=== PATIENT | male | born 1940 | race Caucasian/White ===

== ENCOUNTER 2021-08-23 13:26 | Inpatient (IN) | payer MEDICARE, MEDICAID ==
[~2021-08-23] VITALS: Ht 175.3 cm; Wt 150.0 kg
[~2021-08-23 13:26] MED LIST: ACTOS30 MG PO; AMARYL4 MG PO; ASPIRIN 81M81 MG/TA2 PO; ASPIRIN E.C. 8181 MG PO; BACTRIM DS 8001 TAB PO; CARDURA 2MG2 MG PO; EC-NAPROSYN375 MG PO; FERROUS SU325 MG/TAB PO; FLEXERIL5 MG PO; FLOMAX 0.40.4 MG/CAP PO; FLONASE NASAL S16 GM NS; FOLIC ACID 40400 MCG PO; GLUCOPHAGE500 MG/TAB PO; LAMISIL250 MG PO; LASIX 40MG TABL40 MG PO; LASIX 80MG TABL80 MG PO; LIPITOR 40MG TA40 MG PO; LOPRESSOR 550 MG/TAB PO; MICRONASE2.5 MG PO; NAPROXEN 3375 MG/TAB PO; NITROSTAT0.4 MG/TAB SL; NORCO 325 MG-7.1 TAB PO; PRILOTC; SYNTHROID0.088 MG/T PO; TOPROL XL 50MG50 MG PO; TYLENOL 325MG325 MG PO; VITAMIN C500 MG PO; ZESTRIL 5MG5 MG PO; ZOCOR 10MG10 MG PO
[2021-08-23 13:40] LABS: HEMOGLOBIN 11.9 g/dl (13.5-18.0); MEAN CELL VOLUME 94 fl (80.0-100.0); MEAN CORPUSCULAR HEMOGLOBIN 31 pg (27-31); MEAN CORPUSCULAR HGB CONC 33 g/dl (33.0-37.0); MEAN PLATELET VOLUME 9.7 fl (7.4-10.4); PLATELET COUNT 184 K/mm3 (130-400); RED BLOOD COUNT 3.84 M/mm3 (4.20-5.60)
[2021-08-23 13:52] LABS: BASOPHIL 1 % (0-2); LYMPHOCYTE 6 % (20.0-51.0)
[2021-08-23 13:53] LABS: BAND 15 % (0-10); NEUTROPHILS 73 % (42.0-75.2); PLATELET ESTIMATE NORMAL (NORMAL)
[2021-08-23 13:58] LABS: BILIRUBIN,TOTAL 0.5 mg/dL (0.2-1.2); CALCIUM 8.6 mg/dL (8.4-10.2); CREATININE, serum 2.67 mg/dL (0.72-1.25); POTASSIUM 4.5 mmol/L (3.5-4.5); TOTAL PROTEIN 6.9 gm/dL (6.2-8.1)
[2021-08-23 14:29] LABS: COLLECTION METHOD CATHETER
[2021-08-23 15:01] LABS: MUCOUS Present (NOT PRESENT); PH 5 (5-8); SQUAMOUS EPITHELIAL 0-2 /hpf (0-10); URINE APPEARANCE Cloudy (CLEAR/HAZY); URINE BACTERIA None Seen /hpf (NONE SEEN); URINE BILIRUBIN Negative (NEGATIVE); URINE BLOOD 3+ (NEGATIVE); URINE COLOR Yellow (YELLOW); URINE GLUCOSE 1+ (NEGATIVE); URINE KETONE Trace (NEGATIVE); URINE LEUKOCYTE ESTERASE 3+ (NEGATIVE); URINE NITRATE Negative (NEGATIVE); URINE PROTEIN(semi-quant) 1+ (NEGATIVE); URINE RBC >50 /hpf (0-2); URINE UROBILINOGEN Negative (NEGATIVE)
--- NOTE | 2021-08-23 18:06 | NUR ---
PT ARRIVED TO THE FLOOR AT 1806. THE PATIENT WAS WHEELED IN A WHEELCHAIR, DENIES ANY PAIN, SOB, OR DISCOMFORT. AT THIS TIME, THE PATIENT IS REQUESTING TO REMAIN IN THE WHEELCHAIR TO EAT HIS DINNER. THE PATIENT HAS A TOBAR IN PLACE. PER MAR, THERE IS A FLUID BOLUS, HOWEVER, THAT WAS GIVEN IN THE ED PER REPORT. FLUIDS AT 75ML/HR MAINTAINENCE HAVE NOT BEEN STARTED YET. BARIATRIC BED HAS BEEN DELIVERED THE PATIENT IS MORBIDLY OBESE. PAPER WORK SENT UP WITH THE PATIENT STATES THAT THE PATIENT IS A DNR, AND HAVE ATTEMPTED TO CONTACT PROVIDERS WITH NO ANSWER AT THIS TIME TO GET THE DNR ORDER PLACED. VITAL SIGNS DONE UPON ADMIT TO THE FLOOR, PATIENT IS STABLE AT THIS TIME. WILL REVIEW PATIENT DURING BEDSIDE SHIFT REPORT.
[2021-08-23 18:09] VITALS: BP 94/50; PULSE 111; TEMP 99
[2021-08-23] MEDS ORDERED: NORCO 325 MG-51 TAB PO ×2 (19:38→20:14)
[2021-08-23] MEDS ORDERED: LASIX 20MG TABL20 MG PO (19:40)
[2021-08-23] MEDS ORDERED: GLUCOPHAGE500 MG/TAB PO (19:41)
[2021-08-23] MEDS ORDERED: TYLENOL 325MG325 MG PO (19:42)
[2021-08-23] MEDS ORDERED: AMARYL1 MG PO (19:43)
[2021-08-23] MEDS ORDERED: SYNTHROID0.088 MG/T PO (19:44)
[2021-08-23] MEDS ORDERED: FLOMAX 0.40.4 MG/CAP PO (19:45)
[2021-08-23] MEDS ORDERED: LIPITOR 40MG TA40 MG PO (19:45)
[2021-08-23] MEDS ORDERED: PRINIVIL5 MG PO (19:46)
[2021-08-23] MEDS ORDERED: TOPROL XL 50MG50 MG PO (19:47)
[2021-08-23] MEDS ORDERED: ELIDEL 100G TOP (19:50)
[2021-08-23] MEDS ORDERED: IPRATROPIUM BROM3 M1 IH (19:52)
[2021-08-23] MEDS ORDERED: OMNICEF 300MG300 MG PO (19:53)
[2021-08-23] MEDS ORDERED: BION TEARS EYE1 EAC1 OP (19:56)
[2021-08-23] MEDS ORDERED: ASPIRIN E.C. 8181 MG PO (19:57)
[2021-08-23] MEDS ORDERED: DULCOLAX S10 MG/SUPP RC (19:58)
[2021-08-23] MEDS ORDERED: DULCOLAX TAB5 MG PO (20:00)
[2021-08-23] MEDS ORDERED: B-121000 MCG PO (20:01)
[2021-08-23] MEDS ORDERED: DELSYM30 MG/5 ML PO (20:03)
[2021-08-23] MEDS ORDERED: ZANTAC-360 (FAM10 MG PO (20:05)
[2021-08-23] MEDS ORDERED: GERI-LANTA 355355 ML PO (20:07)
[2021-08-23] MEDS ORDERED: GERI-TUSSI100 MG/5 M PO (20:08)
[2021-08-23] MEDS ORDERED: HYDROCORTISON28.4 GM TP (20:09)
[2021-08-23] MEDS ORDERED: GOOD SENSE400 MG/5 M PO (20:12)
[2021-08-23] MEDS ORDERED: NITROSTAT0.4 MG/TAB SL (20:13)
[2021-08-23] MEDS ORDERED: NYSTATIN POWDER30 GM TOP (20:18)
[2021-08-23 20:21] VITALS: BP 110/55; PULSE 111; TEMP 99.3
[2021-08-23] MEDS ORDERED: OCUSOFT LID SCR50 ML TP (20:23)
[2021-08-23] MEDS ORDERED: MIRALAX PA17 GM/Dose PO (20:24)
[2021-08-23] MEDS ORDERED: PREPH RC (20:26)
[2021-08-23] MEDS ORDERED: SENNA-LAX8.6 MG PO (20:27)
[2021-08-23] MEDS ORDERED: SORE THROAT LOZ1 LO1 PO (20:29)
[2021-08-23] MEDS ORDERED: TUMS500 MG CHEW (20:30)
[2021-08-23] MEDS ORDERED: VITAMIND3 5000 PO (20:31)
[2021-08-23] MEDS ORDERED: ZOFRAN ODT4 MG PO (20:32)
[2021-08-23 23:56] VITALS: BP 132/80; PULSE 133; TEMP 101.6
[2021-08-24] VITALS (7 sets, daily range): BP systolic 118–140; BP diastolic 57–92; PULSE 102–126; TEMP 97.8–99.9
--- NOTE | 2021-08-24 00:07 | NUR ---
PT FEBRILE AND PT REMAINS TACHY HEART RATE IN THE 120'S. TYLENOL ADMINISTERED ORDERED. COOL TOWEL PLACED ON PT. THIS NURSE WILL CONTINUE TO MONITOR.
[2021-08-24 06:45] LABS: HEMOGLOBIN 11.5 g/dl (13.5-18.0); MEAN CELL VOLUME 93 fl (80.0-100.0); MEAN CORPUSCULAR HEMOGLOBIN 31 pg (27-31); MEAN CORPUSCULAR HGB CONC 33 g/dl (33.0-37.0); MEAN PLATELET VOLUME 9.9 fl (7.4-10.4); PLATELET COUNT 166 K/mm3 (130-400); RED BLOOD COUNT 3.75 M/mm3 (4.20-5.60); REDCELL DISTRIBUTION WIDTH-CV 13.9 % (11.5-14.5)
[2021-08-24 06:49] LABS: HEMATOCRIT 34.9 % (42.0-52.0)
[2021-08-24 07:09] LABS: CALCIUM 8.6 mg/dL (8.4-10.2); CREATININE, serum 2.27 mg/dL (0.72-1.25); POTASSIUM 4.3 mmol/L (3.5-4.5)
[2021-08-24 07:29] LABS: BAND 11 % (0-10); LYMPHOCYTE 3 % (20.0-51.0); NEUTROPHILS 82 % (42.0-75.2)
[2021-08-24 07:30] LABS: PLATELET ESTIMATE NORMAL (NORMAL)
--- NOTE | 2021-08-24 07:34 | NUR ---
HOSPITALIST CONTACTED THIS AM TO REVIEW MED REC, NO ANSWER, THIS NURSE RELAYED TO ONCOMING SHIFT. ONCOMING RN FOLLOWING.
--- NOTE | 2021-08-24 10:51 | NUR ---
SW met with patient to complete intake. Patient states that he lives at [facility]. Point of contact is his sister Mariel Zhou [phone]. Patient states that he uses a wheelchair and a walker at times and needs [facility] the [facility]. PCP is Dr. Schafer. Patient states that [facility] the [facility] upon DC. SW will continue to follow. DC plan: back to [facility]
--- NOTE | 2021-08-24 12:47 | NUR ---
[facility] sent to [facility] for [facility]. SW will continue to follow.
--- NOTE | 2021-08-24 19:39 | NUR ---
Pt had an uneventful day. Denies any pain. Restarted medications per Dr's Orders. The patient was able to sit up at bedside by himself, arellano in place draining yellow urine. Report has been given to WILLIAM Wooten
--- NOTE | 2021-08-24 22:17 | NUR ---
PT WAS ALERT AND ORIENTED UPON ENTRY THIS EVENING. CALM AND COOPERATIVE. APPEARS TO BE DYSPNEIC UPON REST. NOTED SOME EXPIRATORY WHEEZING. LUNGS SOUND CLEAR ASSIDE FROM THE WHEEZING. SAT PT UP AND ASSESSED OXYGEN SATS. PT 96% ON ROOM AIR. ASSESSED FOR EDEMA IN THE BLE. NO EDEMA NOTED, JUST ERRYTHEMA ON THE LLE BY THE SCALY SPOT ON THE HYMAN. PT FLUIDS DISCONTINUED. PT'S HR WAS AROUND THE LOWER 100'S. EMPTIED 350 OUT OF THE TOBAR BAG AT 2200. SHIFT ASSESSMENT PERFORMED. MEDICATIONS ADMINISTERED AND EDUCATION PROVIDED. VITALS AND BLOOD SUGARS REMAIN STABLE. PT REPORTS NO PAIN. WILL CONTINUE TO MONITOR.
[2021-08-25] VITALS (7 sets, daily range): BP systolic 100–151; BP diastolic 48–75; PULSE 82–115; TEMP 97.9–99.1
--- NOTE | 2021-08-25 04:46 | NUR ---
PT HAD AN UNEVENTFUL NIGHT. CURRENTLY ASLEEP, BUT ALERT AND ORIENTED WHEN AWOKEN. VITAL SIGNS STABLE. REMIANS AT 94% ON ROOM AIR. PT DOES NOT REPORT ANY PAIN. ADEQUATE TOBAR OUTPUT. NO ADVERSE EVENTS OVERNIGHT. WILL CONTINUE TO MONITOR PT THIS MORNING.
[2021-08-25 06:41] LABS: HEMOGLOBIN 10.4 g/dl (13.5-18.0); MEAN CELL VOLUME 96 fl (80.0-100.0); MEAN CORPUSCULAR HEMOGLOBIN 30 pg (27-31); MEAN CORPUSCULAR HGB CONC 32 g/dl (33.0-37.0); MEAN PLATELET VOLUME 9.9 fl (7.4-10.4); PLATELET COUNT 166 K/mm3 (130-400); RED BLOOD COUNT 3.42 M/mm3 (4.20-5.60); REDCELL DISTRIBUTION WIDTH-CV 14.2 % (11.5-14.5)
[2021-08-25 06:43] LABS: HEMATOCRIT 32.8 % (42.0-52.0)
[2021-08-25 06:59] LABS: CALCIUM 7.9 mg/dL (8.4-10.2); CREATININE, serum 2.06 mg/dL (0.72-1.25); POTASSIUM 4.4 mmol/L (3.5-4.5)
[2021-08-25 07:20] LABS: BAND 18 % (0-10); EOSINOPHIL 1 % (0-4); LYMPHOCYTE 20 % (20.0-51.0); METAMYELOCYTE 2 % (0-0); NEUTROPHILS 58 % (42.0-75.2)
[2021-08-25 07:21] LABS: PLATELET ESTIMATE NORMAL (NORMAL)
--- NOTE | 2021-08-25 08:45 | NUR ---
PT DENIES PAIN, PT PLEASANT, AOX4, ASSESSMENT PERFORMED, PT REPORTS SOB WITH ACTIVITY AND AT REST AND SAYS THIS IS NORMAL FOR HIM. MEDICATIONS GIVEN AND EDUCATED ON MEDICATIONS GIVEN. PT VITALS REVIEWED, NO OTHER NEEDS
--- NOTE | 2021-08-25 10:41 | NUR ---
Social Work student called [employer] with [facility] to confirm patient's current residency. [employer] also let student know that patient is in the LTC unit. Social Work student faxed updates to [facility].
--- NOTE | 2021-08-25 11:51 | NUR ---
VERIFIED PT WITH 2 PT IDENTIFIERS, HEPARIN GIVEN PER ORDER, 10UNITS LEVEMIR GIVEN, REPORTED BLOOD GLUCOSE FROM AID WAS 128 SO NOVOLOG NOT GIVEN. ONCE MEDITECH WENT BACK UP BC WAS 272, RECHECKED AT 261 AT 1329.
--- NOTE | 2021-08-25 12:10 | NUR ---
PATIENT RESTING COMFORTABLY IN BED. AUTHOR REMOVED 10ML FROM TOBAR BALLOON, AND REMOVED CATHETER FROM PATIENT. NO BLEEDING NOTED AT REMOVAL. SOME DISCOMFORT VOCALIZED FROM PATIENT DURING REMOVAL. 200ML DRAINED FROM TOBAR BAG, OF YELLOW/CLEAR URINE. PATIENT PROVIDED WITH URINAL AND INSTRUCTED TO CALL WHEN VOIDS. CALL [facility] AND [employer] IN [place].
--- NOTE | 2021-08-25 17:19 | NUR ---
PT PLEASANT, ORDERS PLACED FOR POST VOID RESIDUAL AND Q6H BLADDER SCANS, PT AOX4, MEDICATIONS GIVEN PER ORDERS, TOBAR DC'D PER ORDER, NO OTHER NEEDS
--- NOTE | 2021-08-25 17:47 | NUR ---
DINNER ORDERED FOR PT
--- NOTE | 2021-08-25 20:00 | NUR ---
PT STATED HE WAS UNABLE TO URINATE, BUT FELT LIKE HE NEEDED TO GO. BLADDER SCANNED PT, OVER 425 ML IN BLADDER. ORDER SAYS TO RE-CATH IF OVER 400 ML. CATHETER PLACEMENT ATTEMPTED TWICE. 18 F CATHETER PLACED ON THE SECOND ATTEMPT. URINE YELLOW. 450 OUT.
--- NOTE | 2021-08-25 21:44 | NUR ---
TX GIVEN VIA MASK, TOLERATED WELL.
--- NOTE | 2021-08-25 21:55 | NUR ---
PT ALERT AND ORIENTED UPON ENTRY AROUND 1999. PT REPORTED FEELING LIKE HE NEEDED TO VOID BUT WAS UNABLE TO GO. BLADDER SCANNED PT AND FOUND >425 ML. ORDER STATED TO PLACE INDWELLING CATHETER IF OVER 400 ML. CATHETER ATTEMPTED TWICE. SUCCESSFUL ON SECOND ATTEMPT. 450 OF YELLOW URINE EMPTIED AFTER CATHETER PLACEMENT. PT DENIES ACUTE PAIN. SHIFT ASSESSMENT COMPLETED. VITAL SIGNS STABLE. BLOOD SUGAR WAS 299, 8 UNITS OF INSULIN ADMINISTERED. WILL CONTINUE TO MONITOR. PT UP TO HAVE BM. STATED HE ONLY HAD A SMALL BOWEL MOVEMENT. RESTING IN BED NOW. WILL CONTINUE TO MONITOR.
--- NOTE | 2021-08-26 00:06 | NUR ---
PT TEMP OF 99.1 AT 1999 HAS NOW DECREASED TO 98.2. WILL CONTINUE TO MONITOR.
[2021-08-26 03:12] VITALS: BP 127/72; PULSE 100; TEMP 98.2
--- NOTE | 2021-08-26 04:40 | NUR ---
PT HAD A QUIET NIGHT. ADEQUATE OUTPUT CONTINUING INTO THE TOBAR BAG. PT STILL DENIES PAIN. CURRENTLY RESTING. ALERT AND ORIENTED WHEN WOKEN. VITAL SIGNS STABLE. TEMPERATURE HAS REMAINED WNL. NO COMPLAINTS OF BLADDER PAIN. WILL CONTINUE TO MONITOR. NO CONCERNS AT THIS TIME.
[2021-08-26 06:48] LABS: HEMOGLOBIN 10.5 g/dl (13.5-18.0); MEAN CELL VOLUME 97 fl (80.0-100.0); MEAN CORPUSCULAR HEMOGLOBIN 31 pg (27-31); MEAN CORPUSCULAR HGB CONC 32 g/dl (33.0-37.0); PLATELET COUNT 162 K/mm3 (130-400); RED BLOOD COUNT 3.41 M/mm3 (4.20-5.60); REDCELL DISTRIBUTION WIDTH-CV 14.1 % (11.5-14.5)
[2021-08-26 06:49] LABS: CALCIUM 7.9 mg/dL (8.4-10.2); CREATININE, serum 1.84 mg/dL (0.72-1.25); POTASSIUM 4.5 mmol/L (3.5-4.5)
[2021-08-26 06:53] LABS: HEMATOCRIT 33.2 % (42.0-52.0)
[2021-08-26 07:33] LABS: BAND 2 % (0-10); EOSINOPHIL 8 % (0-4); LYMPHOCYTE 17 % (20.0-51.0); MYELOCYTE 2 % (0-0); NEUTROPHILS 61 % (42.0-75.2)
[2021-08-26 07:34] LABS: HYPOCHROMIA 1+
[2021-08-26 07:42] LABS: PLATELET ESTIMATE NORMAL (NORMAL)
--- NOTE | 2021-08-26 08:20 | NUR ---
Shift assessment complete. Pt resting in bed. A&Ox4. Assisted up to commode w/walker and x2 assist. Pt weak and unsteady. Had small soft formed BM. Assisted back to bed. Stage 2 ulcer to coccyx, skin tear to posterior scrotum, dry flaky skin to BLE w/large reddened scaly area to left frank. Vitals stable. Kraus in place w/clear yellow output. Denies needs at this time. Call light in reach.
[2021-08-26 08:36] VITALS: BP 117/67; PULSE 113; TEMP 98.2
[2021-08-26] MEDS ORDERED: PREDNISONE20 MG PO (09:40)
[2021-08-26] MEDS ORDERED: FLOMAX 0.40.4 MG/CAP PO (09:41)
--- NOTE | 2021-08-26 10:00 | NUR ---
The patient is to discharge today, 08/26, back to [facility] for long-term care. Transportation was scheduled around 1130, via [facility]. CHIQUITA informed the patient's RN and his sister, Mariel, of the time. CHIQUITA also read the IM form outloud to Mariel over the phone. Mariel verbalized understanding and of agreement to discharge today. No additional needs at this time.
[2021-08-26 10:42] VITALS: BP 117/67; PULSE 113; TEMP 98.2
--- NOTE | 2021-08-26 11:40 | NUR ---
IV to right FA removed w/ tip intact. Pt assisted into clothes and into wheelchair from [facility]. Discharge packet given to [facility] transport. Pt escorted out w/all belongings. Report called to [facility] and all questions answered.
[2021-09-10] MEDS ORDERED: ELIDEL1% TOP (11:10)
[2021-09-10] MEDS ORDERED: PEPCID AC 10MG10 MG PO (11:10)
[2021-09-10] MEDS ORDERED: IPRATROPIUM BROM3 M1 IH (11:12)
[2021-09-10] MEDS ORDERED: OCUSOFT LID SCR50 ML TP (11:16)
[2021-09-10] MEDS ORDERED: MIRALAX PA17 GM/Dose PO (11:17)
[2021-09-10] MEDS ORDERED: AMARYL1 MG PO (11:21)
[2021-09-10] MEDS ORDERED: LANTUS100 U/ML SQ (11:23)
[2021-09-10] MEDS ORDERED: ZESTRIL 5MG5 MG PO (11:24)
== END 2021-08-26 11:45 | DRG 872 ==
LOC: COL.ER 13:26 → EDBD 13:27 → MEDICAL 15:34
PROVIDERS: Personal Emergency Response Attendant; Physician Assistant; ADMIT Student in an Organized Health Care Education/Training Program
DX: A41.9 Sepsis, unspecified organism (principal); I50.22 Chronic systolic (congestive) heart failure; N17.9 Acute kidney failure, unspecified; I13.0 Hypertensive heart and chronic kidney disease with heart failure and stage 1 through stage 4 chronic kidney disease, or unspecified chronic kidney disease; I24.8 Other forms of acute ischemic heart disease; Z68.42 Body mass index [BMI] 45.0-49.9, adult; N39.0 Urinary tract infection, site not specified; M16.12 Unilateral primary osteoarthritis, left hip; I25.5 Ischemic cardiomyopathy; I25.10 Atherosclerotic heart disease of native coronary artery without angina pectoris; E03.9 Hypothyroidism, unspecified; E78.5 Hyperlipidemia, unspecified; N40.1 Benign prostatic hyperplasia with lower urinary tract symptoms; R33.8 Other retention of urine; E11.65 Type 2 diabetes mellitus with hyperglycemia; D64.9 Anemia, unspecified; G89.29 Other chronic pain; M54.50 Low back pain, unspecified; N18.9 Chronic kidney disease, unspecified; E11.22 Type 2 diabetes mellitus with diabetic chronic kidney disease; E66.01 Morbid (severe) obesity due to excess calories; Z99.3 Dependence on wheelchair; Z95.5 Presence of coronary angioplasty implant and graft; Z20.822 Contact with and (suspected) exposure to COVID-19
CPT/HCPCS: 99223-AI; 99232-AI; 99233-AI; 99239; J0696; J1644; J1815; J7030; J7040

== ENCOUNTER 2022-01-25 04:09 | Emergency (ER) | payer MEDICARE, MEDICAID ==
[~2022-01-25] VITALS: Ht 177.8 cm; Wt 127.3 kg
[~2022-01-25 04:09] MED LIST changes: +AMARYL1 MG PO; +B-121000 MCG PO; +BION TEARS EYE1 EAC1 OP; +DELSYM30 MG/5 ML PO; +DULCOLAX S10 MG/SUPP RC; +DULCOLAX TAB5 MG PO; +ELIDEL 100G TOP; +ELIDEL1% TOP; +GERI-LANTA 355355 ML PO; +GERI-TUSSI100 MG/5 M PO; +GOOD SENSE400 MG/5 M PO; +HYDROCORTISON28.4 GM TP; +IPRATROPIUM BROM3 M1 IH; +LANTUS100 U/ML SQ; +LASIX 20MG TABL20 MG PO; +MIRALAX PA17 GM/Dose PO; +NORCO 325 MG-51 TAB PO; +NYSTATIN POWDER30 GM TOP; +OCUSOFT LID SCR50 ML TP; +OMNICEF 300MG300 MG PO; +PEPCID AC 10MG10 MG PO; +PREDNISONE20 MG PO; +PREPH RC; +PRINIVIL5 MG PO; +SENNA-LAX8.6 MG PO; +SORE THROAT LOZ1 LO1 PO; +TUMS500 MG CHEW; +VITAMIND3 5000 PO; +ZANTAC-360 (FAM10 MG PO; +ZOFRAN ODT4 MG PO
[2022-01-25 04:10] VITALS: TEMP 97.9
[2022-01-25 04:52] LABS: BASO % 0.3 % (0.0-2.0); EOS # 0.3 K/mm3 (0.0-0.7); EOS % 2.9 % (0.0-4.0); GRAN # 5.8 K/mm3 (1.4-6.5); GRAN % 64.5 % (42.2-75.2); HEMATOCRIT 37.6 % (42.0-52.0); HEMOGLOBIN 12.5 g/dl (13.5-18.0); LYMPH # 2.1 K/mm3 (1.2-3.4); MEAN CELL VOLUME 92 fl (80.0-100.0); MEAN CORPUSCULAR HEMOGLOBIN 31 pg (27-31); MEAN CORPUSCULAR HGB CONC 33 g/dl (33.0-37.0); MEAN PLATELET VOLUME 10.1 fl (7.4-10.4); MONO # 0.8 K/mm3 (0.1-0.6); MONO % 8.4 % (1.7-9.3); PLATELET COUNT 262 K/mm3 (130-400); REDCELL DISTRIBUTION WIDTH-CV 13.3 % (11.5-14.5)
[2022-01-25 05:11] LABS: ALBUMIN 2.9 gm/dL (3.4-4.8); BILIRUBIN,TOTAL 0.4 mg/dL (0.2-1.2); C-REACTIVE PROTEIN 11.54 mg/dL (0.00-0.50); CALCIUM 9.2 mg/dL (8.4-10.2); CREATININE, serum 1.74 mg/dL (0.72-1.25); POTASSIUM 3.2 mmol/L (3.5-4.5); TOTAL PROTEIN 6.9 gm/dL (6.2-8.1)
[2022-01-25] MEDS ORDERED: ELIQUIS 5MG PO (05:29)
[2022-01-25 08:15] VITALS: BP 127/75; PULSE 92
[2022-01-26] MEDS ORDERED: AMARYL4 MG PO (03:02)
[2022-01-26] MEDS ORDERED: BUMEX 1MG TA1 MG/TA1 PO (03:04)
[2022-01-26] MEDS ORDERED: GERI-TUSSI100 MG/5 M PO (03:04)
[2022-01-26] MEDS ORDERED: GERI-LANTA 355355 ML PO (03:05)
[2022-01-26] MEDS ORDERED: K-DUR20 MEQ PO (03:09)
[2022-01-26] MEDS ORDERED: MIRALAX510G PO (03:11)
[2022-01-26] MEDS ORDERED: OZEMPIC0.25 MG/0. SQ (03:39)
[2022-01-26] MEDS ORDERED: OZEMPIC1 MG/0.71 SQ (03:40)
[2022-01-26] MEDS ORDERED: SORE THROAT LOZ1 LO1 PO (03:41)
[2022-01-26] MEDS ORDERED: ADVIL200 MG PO (03:42)
[2022-01-26] MEDS ORDERED: CALCIUM CARBON500 M1 PO (03:44)
[2022-01-26] MEDS ORDERED: CLEOCIN HCL300 MG PO (08:50)
== END 2022-01-25 08:15 | disposition home or self-care (01) ==
LOC: COL.ER 04:09
PROVIDERS: Family Medicine
DX: M79.632 Pain in left forearm (principal); R79.1 Abnormal coagulation profile
CPT/HCPCS: J2405; J7120

== ENCOUNTER 2022-01-26 02:00 | Emergency (ER) | payer MEDICARE, MEDICAID ==
[~2022-01-26] VITALS: Ht 177.8 cm; Wt 134.1 kg
[~2022-01-26 02:00] MED LIST changes: +ELIQUIS 5MG PO
[2022-01-26 02:05] VITALS: TEMP 98.7
[2022-01-26 02:29] LABS: BASO % 0.2 % (0.0-2.0); EOS # 0.3 K/mm3 (0.0-0.7); EOS % 3.2 % (0.0-4.0); GRAN % 62.3 % (42.2-75.2); HEMATOCRIT 37.4 % (42.0-52.0); HEMOGLOBIN 12.3 g/dl (13.5-18.0); LYMPH % 25.1 % (20.0-51.0); MEAN CELL VOLUME 91 fl (80.0-100.0); MEAN CORPUSCULAR HEMOGLOBIN 30 pg (27-31); MEAN CORPUSCULAR HGB CONC 33 g/dl (33.0-37.0); MEAN PLATELET VOLUME 9.8 fl (7.4-10.4); MONO # 0.7 K/mm3 (0.1-0.6); MONO % 8.5 % (1.7-9.3); PLATELET COUNT 268 K/mm3 (130-400); REDCELL DISTRIBUTION WIDTH-CV 13.3 % (11.5-14.5)
[2022-01-26 02:37] LABS: INR 1.3 (0.8-3.0); PROTHROMBIN TIME 14.7 SECONDS (9.7-12.8)
[2022-01-26 02:40] LABS: PARTIAL THROMBOPLASTIN TIME 34.1 SECONDS (26.0-37.0)
[2022-01-26 02:45] LABS: ALBUMIN 2.9 gm/dL (3.4-4.8); BILIRUBIN,TOTAL 0.3 mg/dL (0.2-1.2); CALCIUM 9.5 mg/dL (8.4-10.2); CREATININE, serum 1.85 mg/dL (0.72-1.25); POTASSIUM 3.4 mmol/L (3.5-4.5); TOTAL PROTEIN 6.6 gm/dL (6.2-8.1)
[2022-01-26 02:56] LABS: TROPONIN-I 0.035 ng/mL (0.00-0.033)
[2022-01-26] MEDS ORDERED: AMARYL4 MG PO (03:02)
[2022-01-26] MEDS ORDERED: GERI-TUSSI100 MG/5 M PO (03:04)
[2022-01-26] MEDS ORDERED: BUMEX 1MG TA1 MG/TA1 PO (03:04)
[2022-01-26] MEDS ORDERED: GERI-LANTA 355355 ML PO (03:05)
[2022-01-26] MEDS ORDERED: K-DUR20 MEQ PO (03:09)
[2022-01-26] MEDS ORDERED: MIRALAX510G PO (03:11)
[2022-01-26] MEDS ORDERED: OZEMPIC0.25 MG/0. SQ (03:39)
[2022-01-26] MEDS ORDERED: OZEMPIC1 MG/0.71 SQ (03:40)
[2022-01-26] MEDS ORDERED: SORE THROAT LOZ1 LO1 PO (03:41)
[2022-01-26] MEDS ORDERED: ADVIL200 MG PO (03:42)
[2022-01-26] MEDS ORDERED: CALCIUM CARBON500 M1 PO (03:44)
[2022-01-26] MEDS ORDERED: CLEOCIN HCL300 MG PO (08:50)
[2022-01-26 10:58] VITALS: BP 134/90; PULSE 96
== END 2022-01-26 10:58 | disposition home or self-care (01) ==
LOC: COL.ER 02:00
PROVIDERS: Family Medicine
DX: M79.602 Pain in left arm (principal); R79.1 Abnormal coagulation profile; M25.512 Pain in left shoulder; R07.9 Chest pain, unspecified; Z79.01 Long term (current) use of anticoagulants